=== PATIENT | male | born 1935 | race Caucasian/White ===

== ENCOUNTER 2019-11-28 10:53 | Emergency (ER) | payer MEDICARE, OTHER, SELFPAY ==
[2019-11-28 11:04] VITALS: BP 147/81; PULSE 97; RESP 16; TEMP 36.4; O2SAT 95
--- NOTE | 2019-11-28 12:04 | ED.SKABFB ---
HPI - Skin/Abscess/Foreign Bdy General Chief complaint: Skin/Abscess/Foreign Body Stated complaint: rash Source: patient and RN notes reviewed Limitations: no limitations History of Present Illness HPI narrative: The patient, who is on several meds for AODM[not insulin] , presents with skin eruption. Patient states he has about 1/2-week history of pink, itchy eruption along his belt line. Symptoms are mild, worse with scratching, and have seemed to worsen and progressed downward along the same leg. No fever, abscess/induration, streaking; he does think the eruption on el predated the acute rash. Related Data Home Medications Medication Instructions Recorded Confirmed Januvia 11/28/19 glyburide 11/28/19 metformin 11/28/19 simvastatin 11/28/19 Allergies Allergy/AdvReac Type Severity Reaction Status Date / Time Penicillins Allergy Unknown Verified 11/28/19 11:03 Review of Systems Review of Systems: Narrative: The patient has been informed that they may have pre-hypertension or Hypertension based on a BP reading in the department. I recommend that the patient call the primary care provider listed on their discharge instructions or a physician of their choice this week to arrange follow up for further evaluation of possible pre-hypertension or Hypertension General/Constitutional: No weight loss,fever Eyes: N0: Redness,discharge Ears/Nose/Throat: No: Epistaxis,ear discharge Respiratory: Denies: Hemoptysis Gastrointestinal: No Vomiting, Bleeding-rectal Skin: No Lumps, REPORTS eruption Neurologic: No Focal Weakness,Sz Hematologic: Denies: Petechiae/Purpura Psychiatric: No: Suicida ideationl All Other Systems: Reviewed and Negative PMFSH Comments At time of signature, agree with nursing past medical, surgical, social and family history. There is no relevant family history pertinent to the presenting complaint Exam Narrative: Exam Narrative: General Appearance: Well-nourished, Cooperative Head: Normocephalic Eye: PERRLA, Conjunctiva clear Ear: External ear normal Nose: Normal nose, Nare clear Mouth/Throat: Normal appearing Neck Exam: Supple Respiratory: Airway patent, No respiratory distress Skin: Warm, Dry , macular-papular eruption with central along the belt line and proximal thigh Musculoskeletal: Moves all extremities, Non tender, dime sized violaceous, macules at distal el. Neurological: A&O x3 Psychiatric: Normal mood, Normal affect Course Vital Signs Vital signs: Vital Signs Temperature 97.6 F 11/28/19 11:04 Pulse Rate 97 11/28/19 11:04 Respiratory Rate 16 11/28/19 11:04 Blood Pressure 147/81 H 11/28/19 11:04 Pulse Oximetry 95 11/28/19 11:04 Temperature 97.6 F 11/28/19 11:04 Pulse Rate 97 11/28/19 11:04 Respiratory Rate 16 11/28/19 11:04 Blood Pressure 147/81 H 11/28/19 11:04 Pulse Oximetry 95 11/28/19 11:04 Discharge Plan Discharge Clinical Impression: Folliculitis Patient Disposition: Home, Self-Care Condition: Stable Instructions: Antibiotic Form, Folliculitis (ED) Additional Instructions: Stop oral antibiotic if diarrhea occurs You can try OTC preparations for itch like Claritin, etc. Keep photo/log of area Prescriptions: New clindamycin HCl 300 mg capsule 300 mg PO TID Qty: 21 RF: 0 mupirocin 2 % ointment 1 applic TOPICAL TID Qty: 30 RF: 0 No Action Januvia RF: 0 glyburide RF: 0 metformin RF: 0 simvastatin RF: 0 Interventions: Discharge Disposition Last Done: 11/28/19 11:30 Follow-up/Referrals: PHYSICIAN NOT ON STAFF,NONSTAFF [Primary Care Provider] - Discharge Date/Time: 11/28/19 11:32
== END 2019-11-28 11:32 | disposition home or self-care (01) ==
PROVIDERS: Emergency Provider Emergency Medicine
DX: L73.9 Follicular disorder, unspecified (principal); E11.9 Type 2 diabetes mellitus without complications; Z79.84 Long term (current) use of oral hypoglycemic drugs
CPT/HCPCS: 99213; G0463

== ENCOUNTER 2020-01-05 23:34 | Inpatient (IN) | payer MEDICARE, OTHER, SELFPAY ==
--- NOTE | ~2020-01-05 | CT_ITS ---
EXAMINATION: CTA chest PE abdomen pel DATE: 01/06/2020 01:11 INDICATION: Shortness of breath with exertion. Abdominal pain and fever. TECHNIQUE: Computed tomography angiography (CTA) of the chest and abdomen/pelvis was performed with 1 00 mL Omnipaque-350 intravenous contrast timed to evaluate the pulmonary arteries, in addition to the remainder of the chest, abdomen and pelvis. Coronal maximum intensity projection 3D-reconstructions were created by the technologist. Automated exposure control and iterative reconstruction technique w ere employed. Exam dose: 1321.07 mGy-cm total exam DLP. COMPARISON: None. FINDINGS: There is diagnostic contrast enhancement of the pulmonary arteries. There is no evidence of pulmonary embolism. No thoracic aortic aneurysm or dissection. Coronary artery calcifications. Borderline heart size. No pericardial or pleural effusion. There is a small sliding hiatal hernia. There are bilateral peripheral branch leaf peripheral reticular pattern with honeycombing, architectu ral distortion, traction bronchiectasis and mild groundglass opacities, with usual interstitial pneum onia pattern. Enlargement of the pulmonary artery suggests pulmonary hypertension. There is mild likely reactive hilar and mediastinal lymph nodes node prominence. Included skeletal structures are unremarkable. IMPRESSION: No evidence of pulmonary embolism Usual interstitial pneumonia Reviewed, dictated and finalized at [facility]. Reviewed, dictated and finalized at [facility].
--- NOTE | ~2020-01-05 | US_ITS ---
EXAMINATION: US right upper quadrant DATE: 01/06/2020 12:02 INDICATION: Acute cholecystitis. TECHNIQUE: Multiple grayscale and Doppler ultrasound images of the abdomen were obtained. COMPARISON: CT 01/06/2020 FINDINGS: The visualized portions of the head and body of the pancreas are normal. The liver is terri l without focal lesion. No liver surface nodularity. The gallbladder is distended and contains gallst ones. Gallbladder wall thickening is noted. There was no sonographic Atwood sign. The common duct is normal and measures 4 mm. IMPRESSION: 1. Acute cholecystitis. Reviewed, dictated and finalized at [facility]. IMPRESSION: 1. Acute cholecystitis.
[2020-01-05 23:41] VITALS: BP 141/89; PULSE 104; RESP 14; TEMP 36.9; O2SAT 94
[2020-01-05 23:49] VITALS: BP 141/89; PULSE 105; RESP 33; TEMP 36.9; O2SAT 92
--- NOTE | 2020-01-05 23:59 | ED.ABDPAIN ---
HPI - Abdominal Pain General Chief Complaint: Abdominal Pain Stated Complaint: bowels disrupted/ fever/ weakness Time Seen by Provider: 01/05/20 23:58 Source: patient Mode of arrival: ambulatory Limitations: no limitations History of Present Illness HPI narrative: Patient is an 84-year-old male with a history of type 2 diabetes, hyperlipidemia who presents for evaluation of lethargy, fatigue, intermittent shortness of breath, constipation and abdominal cramping. Patient states that symptoms began approximately 1 week ago, when patient experienced some abdominal distention and constipation in the setting of eating some stew that he thought was bad. Patient reported that he then thought he had pulled a muscle on his right upper abdomen, reporting some right-sided upper abdominal pain, but states this has subsided quite a bit. Patient denied any diarrhea, no black stools, but states that his symptoms have slightly improved aside from the constipation. He denies any current abdominal pain or distention. He denies nausea or vomiting. Patient denies fever or chills. He denies current cough or chest pain. He does report some shortness of breath at exertion, his fiancee at bedside states that she feels like he has had decreased energy and has had increased work of breathing. He denies any leg swelling or calf pain. No recent sick contacts. Patient is visiting [facility], lives permanently in [place], [place]. Related Data Home Medications Medication Instructions Recorded Confirmed Januvia 11/28/19 glyburide 11/28/19 metformin 11/28/19 simvastatin 11/28/19 vlgnlolnxuvp-owk-alhn-FA-vit K tablet PO 01/05/20 [Adults Multivitamin] omeprazole 40 mg PO BID 01/05/20 Allergies Allergy/AdvReac Type Severity Reaction Status Date / Time Penicillins Allergy Unknown Verified 01/05/20 23:47 Review of Systems Review of Systems: Narrative: CONSTITUTIONAL: Denies fever, chills, or sweats. ENT: Denies rhinorrhea, congestion, sore throat, or otalgia. CARDIOVASCULAR: Denies chest pain, palpitations, or edema. RESPIRATORY: Denies cough, reports shortness of breath GASTROINTESTINAL: Denies current abdominal pain, denies nausea or vomiting, reports constipation GENITOURINARY: Denies dysuria or hematuria. SKIN: Denies rash or itching. MUSCULOSKELETAL: Denies back pain, joint pain, or myalgia. NEUROLOGIC: Denies headache, numbness, reports feeling diffusely weak PMFSH Past Medical History Medical History (Updated 01/06/20 @ 02:49 by Zoe Whelan MD) Acid reflux Diabetes Hyperlipidemia Surgical History Surgical History (Updated 01/06/20 @ 00:29 by Zoe Whelan MD) History of tonsillectomy Social History Social History (Updated 01/06/20 @ 00:19 by Zoe Whelan MD) Alcohol intake: never Substance use: never Living arrangements: with family Occupation/Education: retired Additional occupation/education comments: retired [employer] Gender identity (if verbalized by the patient): Male Sexual Orientation (if Verbalized by the Patient): Straight or Heterosexual Exam Narrative: Exam Narrative: GENERAL: Awake, alert, conversant HEAD: Normocephalic, atraumatic. EYES: PERRLA and EOMI. ENT: Nares clear, no rhinorrhea or epistaxis. Mucous membranes moist. NECK: Supple. CHEST: Tachypneic, mild use of abdominal accessory muscles to breathe, no crackles, no wheezing HEART: Tachycardic rate, sinus rhythm ABDOMEN:Non distended, non tender in all 4 quadrants, no rebound, nonrigid EXTREMITIES: Normal range of motion. No edema. SKIN: Pale, warm, dry, no rash. NEURO:No focal deficits. Alert and oriented x3 Course Vital Signs Vital signs: Vital Signs Temperature 36.9 C 01/05/20 23:41 Pulse Rate 104 H 01/05/20 23:41 Respiratory Rate 14 01/05/20 23:41 Blood Pressure 141/89 H 01/05/20 23:41 Pulse Oximetry 94 01/05/20 23:41 Temperature 36.9 C 01/05/20 23:49 Pulse
[2020-01-06] VITALS (24 sets, daily range): BP systolic 97–125; BP diastolic 48–71; PULSE 57–97; RESP 15–38; TEMP 36.5–36.9; O2SAT 88–100; BMI 26.2
--- NOTE | 2020-01-06 00:15 | ECG_ITS ---
Measurements Intervals [place] Rate: 82 P: 38 AR: 162 QRS: -28 QRSD: 108 T: 11 QT: 369 QTc: 432 Interpretive Statements SINUS RHYTHM INCOMPLETE RIGHT BUNDLE BRANCH BLOCK POOR R WAVE PROGRESSION, ANTERIOR LEADS INFERIOR INFARCT, AGE INDETERMINATE BASELINE ARTIFACT- I, II, III, AVR, AVL, V4-V6 ABNORMAL ECG Electronically Signed On 01-06-2020 7:00:32 CDT by Richardson Wright D.O.
[2020-01-06] MEDS: ONDANSETRON INJ 4 MG/2 ML VIAL IV PUSH (00:29)
[2020-01-06] MEDS: SODIUM CHLORIDE 0.9% IV 2,000 ML 999 ML IV CONT (00:29)
[2020-01-06 00:34] LABS: Alveolar/Arterial O2 Gradient 43.4 mmHg; Base Excess ABG -1.3 mEq/l (+/-2.0); Carboxyhemoglobin 1.3 % THb (0-2.0); Fractional Inspired Oxygen 21 %; HCO3 ABG 24.2 mEq/l (22.0-26.0); Methemoglobin ABG 0.4 %THb (0-1.5); Oxygen Content ABG 16.6 %vol (16.0-22.0); Oxyhemoglobin 85.4 % THb (90.0-100.0); PCO2 ABG 43.6 mmHg (35.0-45.0); PO2 ABG 54.1 mmHg (80.0-100.0); PO2 FiO2 Ratio Arterial Blood 2.58 %; Reduced Hemoglobin 12.9 %THb (0-5.0); Total Hemoglobin 13.8 g/dL (12.0-18.0); pH ABG 7.363 (7.350-7.450)
[2020-01-06 00:36] LABS: Device ROOM AIR; Modified Allen's Test Pass; Oxygen Saturation ABG 86.9 % (95.0-100.0); Site Drawn LEFT RADIAL
[2020-01-06 00:38] LABS: Basophils Absolute Auto 0.1 K/mm3 (0.0-0.1); Basophils Percent Auto 0.3 % (0.2-1.2); Eosinophils Absolute Auto 0.1 K/mm3 (0-0.3); Eosinophils Percent Auto 0.5 % (0-4.4); Hematocrit 42.6 % (42.0-52.0); Hemoglobin 14.2 g/dL (14.0-18.0); Immature Granulocyte Absolute 0.11 K/mm3 (0.00-0.031); Immature Granulocyte Percent A 0.6 % (0-0.5); Lymphocytes Absolute Auto 2.23 K/mm3 (0.9-3.2); Lymphocytes Percent Auto 11.7 % (18.3-44.2); Mean Corpuscular HGB Conc 33.3 g/dl (32-36); Mean Corpuscular Hemoglobin 28.9 pg (26-34); Mean Corpuscular Volume 86.6 fl (80-100); Mean Platelet Volume 10.2 fl (7.4-10.4); Monocytes Absolute Auto 2.5 K/mm3 (0.1-0.6); Monocytes Percent Auto 13.3 % (2.6-8.5); Neutrophils Percent Auto 73.6 % (45.5-73.1); Platelet Count Result 293 k/mm3 (150-375); Red Blood Count 4.92 M/mm3 (4.6-6.20); Red Cell Distribution Width 13.6 % (11.5-14.5)
[2020-01-06 00:48] LABS: INR 1.2; Prothrombin Time 14.9 Seconds (11.1-14.7)
[2020-01-06 00:49] LABS: Partial Thromboplastin Time 39.5 SECONDS (22.3-36.8)
[2020-01-06 00:50] LABS: Alanine Aminotransferase 18 U/L (4-50); Alkaline Phosphatase 93 U/L (38-126); Anion Gap 13 mmol/L (8-16); Aspartate Amino Transferase 28 U/L (17-59); Bilirubin,Total 0.8 mg/dL (0.2-1.3); Blood Urea Nitrogen 19 mg/dL (9-20); Calcium 9.6 mg/dL (8.4-10.2); Carbon Dioxide 27 mmol/L (22-30); Chloride 96 mmol/L (98-107); Estimated CRCL calculation 61 ml/min; Estimated Glomerular Filt Rate > 60; Glucose 80 mg/dL (75-110); Potassium 3.9 mmol/L (3.4-5.0); Sodium 136 mmol/L (137-145)
[2020-01-06 00:51] LABS: Lactic Acid Reflex 0.9 mmol/L (0.7-2.1)
--- NOTE | 2020-01-06 00:53 | PC.NURSE ---
Pt. Pulse ox 88% Pt. placed on 2.0 L NC
--- NOTE | 2020-01-06 00:55 | PC.NURSE ---
Pt. to CT. Unable to obtain urine specimen at this time.
[2020-01-06 01:02] LABS: NT Pro B Type Natriuretic Pept 304 PG/ML (5-100); Troponin I < 0.012 ng/mL (0.000-0.034)
[2020-01-06 01:48] LABS: Add Urine Microscopic? YES; Appearance Urine Clear (Clear); Bilirubin Urine Negative (Negative); Blood Urine 1+ (Negative); Color Urine Yellow (Yellow); Glucose Urine UA Negative (Negative); Ketones Urine Negative (Negative); Leukocyte Esterase Ur Negative LEU/UL (Negative); Mucus Urine Rare /lpf; Nitrate Urine Negative (Negative); Protein Urine 1+ mg/dL (Negative); RBC Urine 0-2 /hpf (0-2); Squamous Epithelial Cell Urine Rare /hpf (Few); WBC Urine 0-3 /hpf
[2020-01-06 01:51] LABS: Specific Grav Ur 1.055 (1.001-1.035)
[2020-01-06] MEDS: metroNIDAZOLE 500 MG/ISO 100ML 500 MG/100 ML BAG 100 MG IVPB ×5 (02:36→23:20)
[2020-01-06 02:58] LABS: Lipase 119 U/L (23-300)
--- NOTE | 2020-01-06 03:15 | PCDIET ---
This patient, Odell Eduardo, was admitted to [facility] Surg Room 322-01. Patient/family oriented to hospital policies and general routines including ID bracelet, bed and alarms, visiting hours, pain management, procedures, bathroom and other care routines, personal items, smoking policy, room service/diet, and visiting hours. Information on how to activate the Rapid Response Team has been discussed. Patient/Family are encouraged to report perceived risks to care and to ask questions if they do not understand what they are told or what they should do.
[2020-01-06] MEDS: SODIUM CHLORIDE 0.9% IV 1,000 ML 125 ML IV CONT (03:49)
--- NOTE | 2020-01-06 04:27 | PM.IMHP ---
H&P: HPI History of Present Illness Date/Time: 01/06/20 04:27 Chief complaint: Hypoxia/Ground glass opacities/Acute cholecystitis Narrative: This is a pleasant 84 year old Diabetic male with known GERD and hyperlipidemia who presented to the hospital with a complaint of increased fatigue, generalized weakness, possible fever, increased shortness of breath and diffuse lower abdominal cramping. His symptoms seemed to start over 1 week ago when he experienced abdominal discomfort after eating soup. Since then he has continued to have vague abdominal discomfort. He denies any diarrhea, nausea, vomiting, dysuria, chest pain, LE swelling, LE pain, hematuria, hematuria, or rectal bleeding. The patient was found to be septic in the ER with tachypnea and leukocytosis. CTA Chest demonstrated bilateral subpleural reticular opacities associated with honeycombing, architectural distortion, traction bronchiectasis and minimal ground glass opacities. CTA Abd/pelvis revealed a distended gallbladder with wall thickening and surrounding fluid. The patient was treated with IV fluids and antibiotics. General Surgery has been consulted and the patient has been swabbed for COVID-19. No other complaints. Review of Systems Review of Systems: All systems reviewed & are unremarkable except as noted in HPI and below PMFSH Past Medical History Medical History (Updated 01/06/20 @ 04:51 by Nawaf Jaime MD) Acid reflux Diabetes Hyperlipidemia Surgical History Surgical History History of tonsillectomy Family History Family History Sibling Diabetes mellitus Social History Social History Smoking status: Former smoker Tobacco type: cigarettes Alcohol intake: current Drinks per week: 1 Substance use: never Living arrangements: with family Occupation/Education: retired Additional occupation/education comments: [employer], [employer] Gender identity (if verbalized by the patient): Male Sexual Orientation (if Verbalized by the Patient): Straight or Heterosexual Spiritual care concerns: No Meds Home Medications and Allergies Home Medications Medication Instructions Recorded Confirmed Type Januvia 100 mg PO DAILY 11/28/19 01/06/20 History glyburide 10 mg PO BID 11/28/19 01/06/20 History metformin 500 mg PO TID 11/28/19 01/06/20 History simvastatin 75 mg PO HS 11/28/19 01/06/20 History omeprazole 40 mg PO HS 01/05/20 01/06/20 History Allergies Allergy/AdvReac Type Severity Reaction Status Date / Time Penicillins Allergy Unknown Verified 01/06/20 04:06 Vital Signs Vital Signs - 24 hr 01/05/20 23:41 01/05/20 23:49 01/06/20 00:01 Temperature 36.9 C 36.9 C Pulse Rate 104 H 105 H Respiratory Rate 14 33 H Blood Pressure 141/89 H 141/89 H 125/71 Pulse Oximetry 94 92 92 01/06/20 00:15 01/06/20 00:16 01/06/20 00:30 Temperature Pulse Rate 96 97 95 Respiratory Rate 38 H 36 H 33 H Blood Pressure 120/59 L Pulse Oximetry 93 93 88 L 01/06/20 00:31 01/06/20 00:45 01/06/20 00:46 Temperature Pulse Rate 91 86 86 Respiratory Rate 35 H 29 H 28 H Blood Pressure 116/67 115/65 Pulse Oximetry 88 L 100 97 01/06/20 00:52 01/06/20 01:15 01/06/20 01:16 Temperature Pulse Rate 85 91 Respiratory Rate 16 20 Blood Pressure 104/66 Pulse Oximetry 95 100 100 01/06/20 01:30 01/06/20 01:31 01/06/20 02:01 Temperature Pulse Rate 81 79 73 Respiratory Rate 25 H 20 20 Blood Pressure 105/58 L 98/48 L Pulse Oximetry 100 100 100 01/06/20 02:31 01/06/20 03:03 01/06/20 03:15 Temperature 36.5 C Pulse Rate 74 64 62 Respiratory Rate 19 15 20 Blood Pressure 117/59 L 97/56 L 100/60 Pulse Oximetry 99 100 95 Exam Const: General: cooperative, healthy appearing, no acute distress, alert and awake Nutritional
[2020-01-06 06:06] LABS: Glucose Point of Care 56 (65-105)
[2020-01-06] MEDS: DEXTROSE 50% 25 GM/50 ML SYRINGE IV PUSH ×2 (06:09→13:39)
[2020-01-06 07:01] LABS: Glucose Point of Care 144 (65-105)
--- NOTE | 2020-01-06 07:23 | PM.CNGS ---
Assessment and Plan Assessment and plan (1) Thickening of wall of gallbladder: Code(s): K82.8 - Other specified diseases of gallbladder Status: Acute Assessment and Plan: exam benign, will get U/S for further eval, cont abx for now (2) Acute respiratory failure with hypoxemia: Code(s): J96.01 - Acute respiratory failure with hypoxia Status: Acute Assessment and Plan: likely source of sepsis, cont abx, support as necessary (3) Sepsis: Qualifiers: Sepsis type: sepsis due to unspecified organism Sepsis acute organ dysfunction status: with acute organ dysfunction Severe sepsis acute organ dysfunction type: acute respiratory failure Acute respiratory failure type: with hypoxia Severe sepsis shock status: without septic shock Qualified Code(s): A41.9 - Sepsis, unspecified organism; R65.20 - Severe sepsis without septic shock; J96.01 - Acute respiratory failure with hypoxia Code(s): A41.9 - Sepsis, unspecified organism Status: Acute Assessment and Plan: likely pulmonary source, pt on broad spectrum abx (4) Suspected 2019 novel coronavirus infection: Code(s): Z20.828 - Contact with and (suspected) exposure to other viral communicable diseases Status: Acute Assessment and Plan: test pending, cont isolation and precautions for now History of Present Illness Consult details Consult date: 01/06/20 Reason for consult: other (cholecystitis) Requesting physician: Nawaf Jaime MD Narrative: Pt is a 84 y/o M presenting to ED c 1 wk h/o progressively worsening difficulty breathing, weakness, malaise. Pt reports sx started about a wk ago. Pt reports some abd pain after eating soup, but largely no abd pain at this time. Pt reports intermittent vague lower abd pain that seems to be worse c eating. Pt denies any nausea, emesis, changes in bowel habits. Review of Systems Constitutional: Constitutional: Denies anorexia, Denies chills, Reports fatigue, Denies fever(s), Denies headache(s), Reports lethargy, Reports malaise, Reports poor appetite, Reports weakness, Denies weight gain and Denies weight loss Eyes: Eyes: Reports no additional eye complaints ENT: Reports system reviewed and no additional complaints, except as documented Cardiovascular: Cardiovascular: Reports no additional cardiovascular complaints Respiratory: Respiratory: Denies chest congestion, Denies cough, Reports dyspnea and Reports dyspnea on exertion Gastrointestinal: Gastrointestinal: Reports abdominal pain, Denies bloating, Denies change in stool character, Denies GI cramping, Denies early satiety, Denies heartburn, Denies nausea and Denies vomiting Genitourinary: Genitourinary: Reports no additional male genitourinary complaints Musculoskeletal: Musculoskeletal: Reports no additional musculoskeletal complaints Integumentary/Breasts: Skin/Breast: Reports system reviewed and no additional complaints, except as docu Neurologic: Reports system reviewed and no additional complaints, except as documented Psychiatric: Psychiatric: Reports no additional psychiatric complaints Endocrine: Endocrine: Reports no additional endocrine complaints Hematologic/Lymphatic: Hematologic/Lymphatic: Reports no additional hematologic/lymphatic complaints Allergic/Immunologic: Allergic/Immunologic: Reports no additional allergic/immunologic complaints PMFSH Past Medical History Medical History Acid reflux Diabetes Hyperlipidemia Surgical History Surgical History History of tonsillectomy Family History Family History Sibling Diabetes mellitus Social History Social History Smoking status: Former smoker Tobacco type: cigarettes Alcohol intake: current Drinks per week: 1 [place]
[2020-01-06 08:07] LABS: Influenza Control Positive
[2020-01-06] MEDS: ALBUTEROL SULFATE (*SP) AEROSOL 1 PUFF 2 PUFF INHALATION ×4 (08:36→19:21)
[2020-01-06] MEDS: PANTOPRAZOLE SODIUM IV 40 MG VIAL IV PUSH (10:18)
--- NOTE | 2020-01-06 12:31 | PM.IMPN ---
Progress Note: A&P Assessment and Plan (1) Acute respiratory failure with hypoxemia: Code(s): J96.01 - Acute respiratory failure with hypoxia Status: Acute Assessment and Plan: r/o Acute pneumonia evidence on CT Chest of opacitites possibly r/o Viral pneumonia and atypical pneumonia. Continue oxygen supplementation and now weaned Continue IV levaquin. sputum culture. pneumococcal antigen, Legionella antigen, mycoplasma ordered no fevers today WBC elevated at 19 today at midnight, repeating CBC tomorrow. ordered incentive spirometer Improving. (2) Abnormal CT of the abdomen: Code(s): R93.5 - Abnormal findings on diagnostic imaging of other abdominal regions, including retroperitoneum Status: Acute Assessment and Plan: CT scan has evidence of gallbladder distention and wall thickening although on exam his abdomen is benign. RUQ U/S shows acute shiraz with the gallbladder distended and contains gallstones. Gallbladder wall thickening. continue NPO lipase 119 continuous IVFs Continue IV levaquin following recommendations of General Surgery (3) Sepsis: Qualifiers: Acute respiratory failure type: with hypoxia Sepsis acute organ dysfunction status: with acute organ dysfunction Sepsis type: sepsis due to unspecified organism Severe sepsis acute organ dysfunction type: acute respiratory failure Severe sepsis shock status: without septic shock Qualified Code(s): A41.9 - Sepsis, unspecified organism; R65.20 - Severe sepsis without septic shock; J96.01 - Acute respiratory failure with hypoxia Code(s): A41.9 - Sepsis, unspecified organism Status: Acute Assessment and Plan: Source of sepsis may be respiratory or Gall bladder. respiratory failure and lung opacities on CTA chest. US with acute shiraz Blood and sputum cultures pending. Covid test pending. Stable vital signs. continue NPO lipase 119 continuous IVFs Continue IV levaquin (4) Leukocytosis: Qualifiers: Leukocytosis type: unspecified Qualified Code(s): D72.829 - Elevated white blood cell count, unspecified Code(s): D72.829 - Elevated white blood cell count, unspecified Status: Acute Assessment and Plan: Secondary to sepsis. Monitor CBCs. Follow Sepsis plan. (5) Suspected 2019 novel coronavirus infection: Code(s): Z20.828 - Contact with and (suspected) exposure to other viral communicable diseases Status: Acute Assessment and Plan: Continue droplet isolation, Supportive care, IVFs and COVID-19 results pending Monitor for fevers, none today. Monitor WBC for improvement, WBC 19 today. Hemodynamically stable at this time. Continue IV Levaquin. (6) Diabetes: Qualifiers: Diabetes mellitus complication status: without complication Diabetes mellitus longterm insulin use: without manager long term care use Diabetes mellitus type: type 2 Qualified Code(s): E11.9 - Type 2 diabetes mellitus without complications Code(s): E11.9 - Type 2 diabetes mellitus without complications Status: Chronic Assessment and Plan: Accuchecks, SSI Coverage, hypoglycemic protocol. Resume home oral hypoglycemic agents when the patient is eating again. (7) Acid reflux: Qualifiers: Esophagitis presence: esophagitis presence not specified Qualified Code(s): K21.9 - Gastro-esophageal reflux disease without esophagitis Code(s): K21.9 - Gastro-esophageal reflux disease without esophagitis Status: Chronic Assessment and Plan: Continue PPI therapy. no complaints today as NPO (8) Hyperlipidemia: Qualifiers: Hyperlipidemia type: unspecified Qualified Code(s): E78.5 - Hyperlipidemia, unspecified Code(s): E78.5 - Hyperlipidemia, unspecified Status: Chronic Assessment and Plan: Resume statin therapy prior to discharge. Additional Plan Date of service was 01/06/2020 at 04:00 hrs. Sub
[2020-01-06 14:04] LABS: Glucose Point of Care 38 (65-105)
[2020-01-06 14:04] LABS: Glucose Point of Care 106 (65-105)
[2020-01-06 14:10] LABS: SARS-CoV-2 RNA PCR Negative
[2020-01-06 15:38] LABS: Glucose Point of Care 57 (65-105)
[2020-01-06 15:38] LABS: Glucose Point of Care 51 (65-105)
[2020-01-06] MEDS: DEXTROSE 5%/LACTATED RINGERS 1,000 ML 100 ML IV CONT (15:50)
[2020-01-06 17:48] LABS: Glucose Point of Care 48 (65-105)
[2020-01-06 17:48] LABS: Glucose Point of Care 188 (65-105)
[2020-01-06 19:38] LABS: Glucose Point of Care 146 (65-105)
[2020-01-06 21:34] LABS: Glucose Point of Care 129 (65-105)
[2020-01-07 00:02] LABS: Glucose Point of Care 45 (65-105)
[2020-01-07 00:20] LABS: Glucose Point of Care 69 (65-105)
[2020-01-07] MEDS: DEXTROSE 10% 500 ML 50 ML IV CONT (00:27)
[2020-01-07 01:52] LABS: Glucose Point of Care 82 (65-105)
[2020-01-07 05:51] VITALS: BP 101/56; PULSE 60; RESP 18; TEMP 36.8; O2SAT 92
[2020-01-07] MEDS: metroNIDAZOLE 500 MG/ISO 100ML 500 MG/100 ML BAG 100 MG IVPB ×2 (06:11→11:36)
[2020-01-07 06:15] LABS: Glucose Point of Care 83 (65-105)
[2020-01-07 06:27] LABS: Basophils Percent Auto 0.4 % (0.2-1.2); Eosinophils Absolute Auto 0.2 K/mm3 (0-0.3); Eosinophils Percent Auto 2.4 % (0-4.4); Hematocrit 35.3 % (42.0-52.0); Hemoglobin 11.5 g/dL (14.0-18.0); Immature Granulocyte Absolute 0.05 K/mm3 (0.00-0.031); Immature Granulocyte Percent A 0.5 % (0-0.5); Lymphocytes Absolute Auto 1.98 K/mm3 (0.9-3.2); Lymphocytes Percent Auto 21.2 % (18.3-44.2); Mean Corpuscular HGB Conc 32.6 g/dl (32-36); Mean Corpuscular Hemoglobin 28.7 pg (26-34); Mean Platelet Volume 9.8 fl (7.4-10.4); Monocytes Absolute Auto 1.1 K/mm3 (0.1-0.6); Monocytes Percent Auto 12.1 % (2.6-8.5); Neutrophils Absolute Auto 5.9 K/mm3 (1.3-6.7); Neutrophils Percent Auto 63.4 % (45.5-73.1); Platelet Count Result 253 k/mm3 (150-375); Red Blood Count 4.01 M/mm3 (4.6-6.20); Red Cell Distribution Width 13.8 % (11.5-14.5); White Blood Count 9.4 K/mm3 (4.5-10.0)
[2020-01-07 06:38] LABS: Alanine Aminotransferase 101 U/L (4-50); Albumin Level 3.1 g/dL (3.5-5.1); Alkaline Phosphatase 156 U/L (38-126); Anion Gap 6 mmol/L (8-16); Aspartate Amino Transferase 148 U/L (17-59); Bilirubin,Total 0.5 mg/dL (0.2-1.3); Blood Urea Nitrogen 10 mg/dL (9-20); Calcium 8.7 mg/dL (8.4-10.2); Carbon Dioxide 31 mmol/L (22-30); Chloride 98 mmol/L (98-107); Estimated CRCL calculation 68 ml/min; Estimated Glomerular Filt Rate > 60; Glucose 84 mg/dL (75-110); Lipase 87 U/L (23-300); Potassium 3.8 mmol/L (3.4-5.0); Sodium 135 mmol/L (137-145)
[2020-01-07] MEDS: DEXTROSE 10% 1,000 ML 90 ML IV CONT (07:32)
[2020-01-07] MEDS: PANTOPRAZOLE SODIUM IV 40 MG VIAL IV PUSH (08:39)
[2020-01-07] MEDS: ALBUTEROL SULFATE (*SP) AEROSOL 1 PUFF 2 PUFF INHALATION ×2 (08:40→12:50)
[2020-01-07 08:52] LABS: Glucose Point of Care 121 (65-105)
--- NOTE | 2020-01-07 09:20 | PM.IMPN ---
Progress Note: A&P Assessment and Plan (1) Acute respiratory failure with hypoxemia: Code(s): J96.01 - Acute respiratory failure with hypoxia Status: Acute Assessment and Plan: r/o Acute pneumonia evidence on CT Chest of opacitites possibly r/o Viral pneumonia and atypical pneumonia. COVID ruled out with negative test and quick CBC recovery. Continue IV levaquin (for gall bladder inflammation). sputum culture. pneumococcal antigen, Legionella antigen, mycoplasma ordered WBC improved from 19 to 9, no fevers noted, no cough, no wheezing, no crackles, no SOB/dyspnea, no O2 requirements. ordered incentive spirometer RESOLVED. (2) Abnormal CT of the abdomen: Code(s): R93.5 - Abnormal findings on diagnostic imaging of other abdominal regions, including retroperitoneum Status: Acute Assessment and Plan: CT scan has evidence of gallbladder distention and wall thickening on exam his abdomen has RUQ discomfort with deep palpation RUQ U/S shows acute shiraz with the gallbladder distended and contains gallstones. Gallbladder wall thickening. lipase 119, 87 LFTs increasing ,AST 28, 148; ALT 18, 101; Alk PHos 93 to 156; repeat labs tomorrow, receiving IVFs. Continue IV levaquin following recommendations of General Surgery (advance diet as tolerated, if no surgery planned ) (3) Sepsis: Qualifiers: Sepsis type: sepsis due to unspecified organism Sepsis acute organ dysfunction status: with acute organ dysfunction Severe sepsis acute organ dysfunction type: acute respiratory failure Acute respiratory failure type: with hypoxia Severe sepsis shock status: without septic shock Qualified Code(s): A41.9 - Sepsis, unspecified organism; R65.20 - Severe sepsis without septic shock; J96.01 - Acute respiratory failure with hypoxia Code(s): A41.9 - Sepsis, unspecified organism Status: Acute Assessment and Plan: Source of sepsis appears to be Gall bladder. respiratory failure and lung opacities on CTA chest. US with acute shiraz Blood and sputum cultures pending. Covid test negative. Stable vital signs. lipase 119, 87 continuous IVFs for low glucose levels Continue IV levaquin LFTs increasing ,AST 28, 148; ALT 18, 101; Alk PHos 93 to 156; repeat labs tomorrow following recommendations of General Surgery (advance diet as tolerated, if no surgery planned ) (4) Leukocytosis: Qualifiers: Leukocytosis type: unspecified Qualified Code(s): D72.829 - Elevated white blood cell count, unspecified Code(s): D72.829 - Elevated white blood cell count, unspecified Status: Acute Assessment and Plan: Secondary to sepsis. WBC improved from 19 to 9, no fevers noted, no cough, no wheezing, no crackles, no SOB/dyspnea, no O2 requirements. Monitor CBCs. Follow Sepsis plan. (5) Suspected 2019 novel coronavirus infection: Code(s): Z20.828 - Contact with and (suspected) exposure to other viral communicable diseases Status: Acute Assessment and Plan: COVID-19 test negative D/C'd droplet isolation, Supportive care\ WBC improved from 19 to 9, no fevers noted, no cough, no wheezing, no crackles, no SOB/dyspnea, no O2 requirements. Hemodynamically stable at this time. Continue IV Levaquin. (6) Diabetes: Qualifiers: Diabetes mellitus type: type 2 Diabetes mellitus snf insulin use: without rodent exterminator use Diabetes mellitus complication status: without complication Qualified Code(s): E11.9 - Type 2 diabetes mellitus without complications Code(s): E11.9 - Type 2 diabetes mellitus without complications Status: Chronic Assessment and Plan: Accuchecks, SSI Coverage Discontinued due to hypoglycemia, hypoglycemic protocol. HOLDING home oral hypoglycemic agents due to hypoglycemia, (7) Acid reflux: Qualifiers: Esophagitis presence: esophagitis presence not specified Qualified Code(s): K21.9 - Gastro-esophag
--- NOTE | 2020-01-07 09:57 | PM.PNGS ---
Progress Note: A&P Assessment and Plan (1) Cholecystitis with cholelithiasis: Code(s): K80.10 - Calculus of gallbladder with chronic cholecystitis without obstruction Status: Acute Assessment and Plan: completely assymptomatic, exam benign, tatyana low fat diet, likely more of a chronic issue, recommend low fat diet and abx, ok to dc home c po abx, pt lives in [place], [place] and will need f/u c PCP to discuss cholecystectomy electively (2) Acute respiratory failure with hypoxemia: Code(s): J96.01 - Acute respiratory failure with hypoxia Status: Acute Assessment and Plan: largely resolved, good sats on RA (3) Sepsis: Qualifiers: Sepsis type: sepsis due to unspecified organism Sepsis acute organ dysfunction status: with acute organ dysfunction Severe sepsis acute organ dysfunction type: acute respiratory failure Acute respiratory failure type: with hypoxia Severe sepsis shock status: without septic shock Qualified Code(s): A41.9 - Sepsis, unspecified organism; R65.20 - Severe sepsis without septic shock; J96.01 - Acute respiratory failure with hypoxia Code(s): A41.9 - Sepsis, unspecified organism Status: Acute Assessment and Plan: resolving, cont abx Subjective Subjective Date/Time Seen: 01/07/20 09:57 Pt feels good, reports no issues. Pt tatyana low fat diet. Review of Systems Constitutional: Constitutional: Denies anorexia, Denies chills, Denies fatigue, Denies fever(s), Denies lethargy, Denies malaise and Denies poor appetite Cardiovascular: Cardiovascular: Reports no additional cardiovascular complaints Respiratory: Respiratory: Reports no additional respiratory complaints Gastrointestinal: Gastrointestinal: Reports no additional gastrointestinal complaints Exam Const: General: cooperative, healthy appearing, comfortable and no acute distress Resp: Effort & Inspection: normal respiratory effort Cardio: Rate: regular rate Rhythm: regular rhythm GI: Inspection: normal to inspection and non-distended GI Palp: Yes Soft to palpation, No Tenderness to palpation present (GI), No Guarding due to palpation present (GI) and No Rigid due to palpation Objective Data Vital Signs Vital Signs: Vital Signs - 24 hr 01/06/20 10:15 01/06/20 12:00 01/06/20 19:21 Temperature 36.9 C Pulse Rate 66 73 74 Respiratory Rate 16 18 18 Blood Pressure 116/60 Pulse Oximetry 99 92 91 01/06/20 22:00 01/07/20 05:51 Temperature 36.8 C 36.8 C Pulse Rate 71 60 Respiratory Rate 18 18 Blood Pressure 106/59 L 101/56 L Pulse Oximetry 90 92 Intake/Output Intake/Output: Intake & Output 01/04/20 01/05/20 01/06/20 01/07/20 23:59 23:59 23:59 23:59 Intake Total 3890 350 Output Total 450 Balance 3440 350 Meds/Results Medications: Active Medications Generic Name Dose Route Start Last Admin Trade Name Freq PRN Reason Stop Dose Admin Albuterol 2 puff 01/06/20 04:53 Albuterol Sulfate (*Sp) Aerosol 1 Puff INHALATION QIDRT PRN Shortness Of Breath Albuterol 2 puff 01/06/20 08:00 01/07/20 08:40 Albuterol Sulfate (*Sp) Aerosol 1 Puff INHALATION 2 puff QIDRT BELKIS Administration Dextrose 12.5 gm 01/06/20 04:37 01/06/20 13:39 Dextrose 50% 25 Gm/50 Ml Syringe IV PUSH 12.5 gm PRN PRN Administration Hypoglycemia Protocol Glucagon 1 mg 01/06/20 04:37 Glucagon For Inj 1 Mg Vial IM PRN PRN Hypoglycemia Protocol Levofloxacin/Dextrose 750 mg in 150 mls @ 100 mls/hr 01/07/20 07:00 01/07/20 07:34 Levaquin 750 Mg/D5w 150 Ml IVPB Infused Q24H BELKIS Infusion Metronidazole 500 mg in 100 mls @ 100 mls/hr 01/06/20 07:00 01/07/20 07:11 Flagyl 500 Mg/Iso Soln 100 Ml IVPB Infused Q6HR BELKIS Infusion Dextrose 1,000 mls @ 100 mls/hr 01/06/20 04:37 Dextrose 5% 1,000 Ml IVPB PRN PRN Hypoglycemia Protocol Dextrose 500 mls @ 50 mls/hr 01/07/20 00:25 01/07/20 06:31 Dextros
[2020-01-07 10:17] LABS: Glucose Point of Care 202 (65-105)
[2020-01-07 10:37] VITALS: RESP 96
[2020-01-07 11:01] LABS: Hemoglobin A1C 6.2 % (<5.7)
[2020-01-07 12:55] LABS: Glucose Point of Care 142 (65-105)
[2020-01-07 14:00] VITALS: BP 104/58; PULSE 65; RESP 18; TEMP 36.6; O2SAT 100
[2020-01-07 15:12] LABS: Glucose Point of Care 137 (65-105)
--- NOTE | 2020-01-07 15:35 | PM.DS ---
DS: Admitting Diagnosis Admitting Diagnosis Admitting Diagnosis: Hypoxia/Ground glass opacities/Acute cholecystitis DS: Discharge Diagnosis Discharge Diagnosis (1) Acute respiratory failure with hypoxemia: Code(s): J96.01 - Acute respiratory failure with hypoxia Status: Acute Assessment and Plan: r/o Acute pneumonia evidence on CT Chest of opacitites possibly r/o Viral pneumonia and atypical pneumonia. COVID ruled out with negative test and quick CBC recovery. Continue IV levaquin (for gall bladder inflammation). sputum culture. pneumococcal antigen, Legionella antigen, mycoplasma ordered WBC improved from 19 to 9, no fevers noted, no cough, no wheezing, no crackles, no SOB/dyspnea, no O2 requirements. ordered incentive spirometer RESOLVED. (2) Abnormal CT of the abdomen: Code(s): R93.5 - Abnormal findings on diagnostic imaging of other abdominal regions, including retroperitoneum Status: Acute Assessment and Plan: CT scan has evidence of gallbladder distention and wall thickening on exam his abdomen has RUQ discomfort with deep palpation RUQ U/S shows acute shiraz with the gallbladder distended and contains gallstones. Gallbladder wall thickening. lipase 119, 87 LFTs increasing ,AST 28, 148; ALT 18, 101; Alk PHos 93 to 156; repeat labs tomorrow, receiving IVFs. Continue IV levaquin following recommendations of General Surgery - recommended the patient could be discharged for medical management per his primary care provider, continued oral antibiotics, instructed patient to follow a low-fat diet, educated the patient and his fiancee about the risk for repeat acute cholecystitis (3) Sepsis: Qualifiers: Acute respiratory failure type: with hypoxia Sepsis acute organ dysfunction status: with acute organ dysfunction Sepsis type: sepsis due to unspecified organism Severe sepsis acute organ dysfunction type: acute respiratory failure Severe sepsis shock status: without septic shock Qualified Code(s): A41.9 - Sepsis, unspecified organism; R65.20 - Severe sepsis without septic shock; J96.01 - Acute respiratory failure with hypoxia Code(s): A41.9 - Sepsis, unspecified organism Status: Acute Assessment and Plan: RESOLVED> Source of sepsis appears to be Gall bladder. respiratory failure and lung opacities on CTA chest. US with acute shiraz Covid test negative. Stable vital signs. lipase 119, 87 Continue oral flagyl and levaquin LFTs increasing ,AST 28, 148; ALT 18, 101; Alk PHos 93 to 156 - was likely reactive and can follow-up with his primary care provider and following recommendations of General Surgery tolerated advancing of diet. (4) Leukocytosis: Qualifiers: Leukocytosis type: unspecified Qualified Code(s): D72.829 - Elevated white blood cell count, unspecified Code(s): D72.829 - Elevated white blood cell count, unspecified Status: Acute Assessment and Plan: Secondary to sepsis. WBC improved from 19 to 9, no fevers noted, no cough, no wheezing, no crackles, no SOB/dyspnea, no O2 requirements. Monitor CBCs. Follow Sepsis plan. RESOLVED. (5) Suspected 2019 novel coronavirus infection: Code(s): Z20.828 - Contact with and (suspected) exposure to other viral communicable diseases Status: Acute Assessment and Plan: COVID-19 test negative D/C'd droplet isolation, Supportive care\ WBC improved from 19 to 9, no fevers noted, no cough, no wheezing, no crackles, no SOB/dyspnea, no O2 requirements. Hemodynamically stable at this time. Continued antibiotics IMPROVED> (6) Diabetes: Qualifiers: Diabetes mellitus complication status: without complication Diabetes mellitus assisted insulin use: without oil heaterman use Diabetes mellitus type: type 2 Qualified Code(s): E11.9 - Type 2 diabetes mellitus without complications Code(s): E11.9 - Type [address]
[2020-01-08 13:04] LABS: Pneumococcal Antigen Urine Not Detected (Not Detected)
[2020-01-09 04:49] LABS: Legionella pneumophila Ag Ur Not Detected (Not Detected)
[2020-01-10 12:23] LABS: Mycoplasma IgM Antibody Titer 49 U/mL (<770)
== END 2020-01-07 14:10 | disposition home or self-care (01) | DRG 871 ==
LOC: ANHED 01-06 02:50 → ANH3MEDSUR 01-06 03:14
PROVIDERS: Nurse Practitioner; Admitting Provider Family Medicine; Emergency Provider Emergency Medicine; Visit Provider Internal Medicine
DX: A41.9 Sepsis, unspecified organism (principal); J96.01 Acute respiratory failure with hypoxia; K80.00 Calculus of gallbladder with acute cholecystitis without obstruction; R65.20 Severe sepsis without septic shock; D72.829 Elevated white blood cell count, unspecified; Z20.828 Contact with and (suspected) exposure to other viral communicable diseases; E11.649 Type 2 diabetes mellitus with hypoglycemia without coma; K21.9 Gastro-esophageal reflux disease without esophagitis; E78.5 Hyperlipidemia, unspecified; R93.5 Abnormal findings on diagnostic imaging of other abdominal regions, including retroperitoneum; K82.8 Other specified diseases of gallbladder; Z87.891 Personal history of nicotine dependence
CPT/HCPCS: 36415; 36600; 71275; 74177; 76705; 80053; 81001; 82375; 82805; 83036; 83050; 83605; 83690; 83880; 84484; 85025; 85610; 85730; 86738; 87449; 87635; 87804; 87899; 93005; 94640; 96361; 96365; 96375; 97116; 97161; 99285; A9270; C9113; C9803; G0378; J0131; J1956; J2405; J7030; J7121; Q9967; U0003